=== PATIENT | male | born 1975 | race Caucasian/White ===

== ENCOUNTER 2017-02-08 03:13 | Emergency (ER) | payer OTHER ==
[~2017-02-08] VITALS: Ht 180.3 cm; Wt 89.8 kg
[~2017-02-08 03:13] MED LIST: CIPROFLOXACIN500 MG PO; DOXYCYCLINE MO100 MG PO; KETOROLAC TROME10 M1 PO; PERCOCET 5-3251 EACH PO; PROAIR HFA0.09 MG/Ac INH; TAMSULOSIN HYD0.4 MG PO; TYLENOL #31 TAB PO
[2017-02-08 03:51] VITALS: BP 129/88
[2017-02-08] MEDS ORDERED: PERCOCET 5-3251 EACH PO (04:01)
--- NOTE | 2017-02-08 04:01 | ED ANKLE/FOOT INJURY COMPLAINT ---
History of Present Illness General Chief Complaint: Lower Extremity Problems Stated Complaint: LT FOOT NUMBNESS "I CAN'T EVEN WIGGLE IT" Source: patient, old records Exam Limitations: no limitations Vital Signs & Intake/Output Vital Signs & Intake/Output Vital Signs Date Time Temp Pulse Resp B/P Pulse O2 O2 Flow FiO2 Ox Delivery Rate 02/08 0356 97 Room Air 02/08 0351 100 16 129/88 98 Room Air Allergies Coded Allergies: No Known Allergies (02/08/17) Reconcile Medications Albuterol Sulfate (Proair Hfa) 0.09 MG/Actuation PRIYANK 2 PUFF INH PRN ASTHMA ( Reported) Ketorolac Tromethamine 10 MG TABLET 1 TAB PO Q6P PRN chest pain Oxycodone HCl/Acetaminophen (Percocet 5-325 MG Tablet) 1 EACH TABLET 1-2 TAB PO Q6P PRN pain Oxycodone HCl/Acetaminophen (Percocet 5-325 MG Tablet) 5 MG-325 MG TABLET 1-2 TAB PO Q6P PRN PAIN Tylenol With Codeine (Tylenol With Codeine #3 Tablet) 300 MG-30 MG TABLET 1 TAB PO Q6 PRN PAIN (Reported) Triage Note: PT TO ED [facility] L FOOT PAIN X3 WEEKS. HAD NEG XRAY 2 WEEKS AGO. "10/02" PAIN. WAS REFERRED TO [facility] "COULDNT MAKE IT THERE BECAUSE OF MY WORK SCHEDULE." L PEDAL PULSES WNL. Triage Nurses Notes Reviewed? yes HPI: Patient presents to the emergency room with increased pain to his left foot. Patient states that his foot began hurting approximately 4-5 days ago. Patient is unsure how he injured it. This morning he woke up to go to the bathroom and had severe pain to his left foot. The pain increased with ambulation and wiggling his toes. Pain is on the lateral aspect of his foot as well as in the Achilles area. The pain is 10 out of 10 and is constant. The pain is sharp but throbbing in nature. Patient denies any other pain. She has been seen by his primary care physician and had x-rays which showed no evidence of any fracture. Past History Travel History Traveled to [place] past 21 day No Medical History Any Pertinent Medical History? 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 Hx Contributory? No Review of Systems Review of Systems Constitutional: Reports: no symptoms. Respiratory: Reports: no symptoms. Cardiovascular: Reports: no symptoms. GI: Reports: no symptoms. Musculoskeletal: Reports: see HPI. Neurological/Psychological: Reports: no symptoms. Immunologic/Allergic: Reports: no symptoms. Physical Exam Physical Exam General Appearance: well developed/nourished, alert, awake, moderate distress Eyes: Bilateral: PERRL, EOMI. Ears, Nose, Throat: normal pharynx, normal ENT inspection Neck: normal inspection, supple, full range of motion Cardiovascular/Respiratory: normal breath sounds, normal peripheral pulses, regular rate/rhythm, no respiratory distress Leg/Knee/Thigh Left: normal range of motion, normal inspection Leg/Knee/Thigh Right: normal range of motion, normal inspection Ankle Left: normal inspection, normal range of motion Ankle Right: normal inspection, normal range of motion Foot Left: tenderness, NO SWELLING OR ECCHYMOSIS TENDER OVER THE DISTAL aCHILLES WELL THE LATERAL DORSAL ASPECT OF HIS FOOT Neuro/Vascular: normal motor function, normal sensation, CAP REFILL <2 SEC Tendon: normal tendon function Psychiatric: awake, alert, oriented x 3 Skin: intact, normal color, warm/dry Progress Differential Diagnosis: fracture, sprain, contusion Plan of Care: Orders Procedure Date/time Status Durable Medical Equipment 02/08 401 Active Current Medications Sig/Jose Start time Last Medication Dose Stop Time Status Admin Ibuprofen 600 MG ONCE ONE 02/08 415 CANr (Motrin) 02/09 416 Ibuprofen 800 MG ONCE ONE 02/08 415 UNVr (Motrin) 02/09 416 Departure Departure Disposition: HOME OR SELF CARE Condition: Stable Clinical Impression Primary Impression: Sprain of left foot Qualifiers: Encounter type: initial encounter Qualified Code: S93.602A - Unspecified sprain of left foot, initial encounter Referrals: JONELLE SHETTY,JEFFREY CADE MD,FEDERICO Dexter (PCP/Family) Additional Instructions: USE WALKING BOOT FOR COMFORT FOLLOW UP WITH DR. SAL RETURN FOR ANY CONCERNS Departure Forms: Customer Survey General Discharge Information Prescriptions: Current Visit Scripts Oxycodone HCl/Acetaminophen (Percocet 5-325 MG Tablet) 1-2 TAB PO Q6P PRN PAIN #20 TAB Procedures Splinting Location: LEFT FOOT/ANKLE Manual Alignment Performed: No Pre-Made Type: velcro Splint: posterior walking Splint Applied By: splint applied by me Pre-Proc Neuro Vasc Exam: normal Post-Proc Neuro Vasc Exam: normal
== END 2017-02-08 04:11 ==
LOC: ERH 03:13
DX: S93.602A Unspecified sprain of left foot, initial encounter (principal); X58.XXXA Exposure to other specified factors, initial encounter